=== PATIENT | male | born 1965 | race Caucasian/White ===

== ENCOUNTER 2023-12-23 09:55 | Outpatient (CLI) | payer OTHER, SELFPAY ==
[2023-12-23 10:34] LABS: Basophils Absolute Auto 0.05 K/mm3 (0.00-0.10); Basophils Percent Auto 0.6 % (0.0-1.0); Eosinophils Absolute Auto 0.38 K/mm3 (0.02-0.50); Eosinophils Percent Auto 4.8 % (1.0-6.0); Hematocrit 43.5 % (40.0-54.0); Hemoglobin 14.4 g/dL (14.0-18.0); Immature Granulocyte Absolute 0.02 K/mm3 (0.00-0.00); Immature Granulocyte Percent A 0.3 % (0.0-0.0); Lymphocytes Absolute Auto 2.58 K/mm3 (1.10-4.50); Lymphocytes Percent Auto 32.3 % (18.0-42.0); Mean Corpuscular HGB Conc 33.1 g/dL (32-36); Mean Corpuscular Hemoglobin 28.8 pg (27.0-31.0); Monocytes Percent Auto 8.8 % (2.0-11.0); Neutrophils Absolute Auto 4.26 K/mm3 (1.70-7.20); Neutrophils Percent Auto 53.2 % (50.0-70.0); Platelet Count Result 248 K/mm3 (150-420); Red Cell Distribution Width 13.4 % (11.6-14.4)
[2023-12-23 10:54] LABS: Alanine Aminotransferase 44 U/L (16-63); Albumin Level 4.1 g/dL (3.4-5.0); Alkaline Phosphatase 93 U/L (46-116); Anion Gap 9 mmol/L (4-12); Aspartate Amino Transferase 23 U/L (15-37); Bilirubin,Total 0.4 mg/dL (0.00-1.00); Blood Urea Nitrogen 14 mg/dL (7-18); Carbon Dioxide 28 mmol/L (21-32); Chloride 103 mmol/L (98-108); Cholesterol 220 mg/dL (0-200); Estimated Glomerular Filt Rate > 60; Glucose 109 mg/dL (70-99); HDL Direct 49 mg/dL (40-60); LDL Cholesterol Calculated 142 mg/dL (<130); Osmolality Calculated 291 mOsm/kg (285-295); Potassium 4.4 mmol/L (3.5-5.1); Sodium 140 mmol/L (136-145); Total Protein 7.2 g/dL (6.4-8.2); Triglycerides 145 mg/dL (0-150)
[2023-12-23 10:56] LABS: Thyroid Stimulating Hormone Reflex 2.14 u/IU/mL (0.36-3.74)
== END 2023-12-23 09:56 | disposition home or self-care (01) ==
PROVIDERS: PCP Family Medicine; Visit Provider Family Medicine
DX: E03.9 Hypothyroidism, unspecified (principal); I10 Essential (primary) hypertension
CPT/HCPCS: 36415; 80053; 80061; 84443; 85025

== ENCOUNTER 2024-07-16 12:15 | Emergency (ER) | payer OTHER, SELFPAY ==
--- OUTSIDE RECORDS SUMMARY | 2024-07-16 20:59 | XMS_ITS | Continuity of Care Document ---
Author Organization [facility] Address [address] [place] [address] Phone Care Team Providers Care Sandfill Operator Surface Name Role Phone Ninfa Ling DO Unavailable Unavailable Procedures Procedure Date Flu Vaccine, Split, 3+yrs, IM 2 Advance Directives Directive Yes / No Effective Date File Name No Information Encounters Encounter Description Practice Location Reason(s) For Visit Diagnoses Date Provider Providers Copied on Encounter [facility], [address], [id number], tel:[phone] Other No Information Anuradha Ocasio. [address] [facility] [address], [address], [place], [place], [address], [place]. tel:[phone] Family History Family Member Type Diagnosis Age At Onset No Information Payers Payer name Insurance type Covered constitution party ID Authoriza tion(s) [employer] [id number] Social History Type Description Quantity Date Captured Comments Sex Male Smoking Status No Information Chief Complaint And Reason For Visit No Information Reason For Referral Reason For Referral No Information History Of Present Illness Encounter Date Complaint History Of Prese nt Illness No Information Functional Status Date Functional Assessmen t No Information Instructions Date Instruction Additional Infor mation No Information Assessments Type Assessment Date No Information Patient Care Teams Name Effective Dates (start - stop) Status Members No Information
--- OUTSIDE RECORDS SUMMARY | 2024-07-16 20:59 | XMS_ITS | Patient Health Record ---
Author Organization [facility] Address [address] [address] [place] [address] Care Team Providers Care Answering Service Telephone Operator Name Role Phone Josué MARQUEZ, Hung (Maxi) Primary Care Provide r Unavailable Allergies No Known Allergies Reason For Referral No Information Medications Medication SIG (Take, Route, Frequency, Duration) Notes Start Date End Date Status Tamiflu 75 MG 1 capsule Orally Twi ce a day for 5 day(s) 01/27/2022 Active Lisinopril Active Fluticasone Propionate 50 MCG/ACT 2 spray in each nostril Nasally Once a day for 7 days 01/27/2022 Active Social History Tobacco Use: Social History Observation Description Date Details (start date - stop date) Current Smoker NA - NA Tobacco Use/Smoking Question Answer Notes You are a current smoker How often do you smoke cigarettes? every day How many cigarettes a day do you smoke? - Plan Of Treatment No Information Insurance Providers Payer Name Payer Address Payer Phone Subscriber Number Group Number Insured Name Patient Relationship to Insured Coverage Start Date Coverage End Date [facility] [address] [place] [address] [phone] [id number] JEFFY RIZZO Self - patient is the insured Medical (General) History Medical History History ICD Code HTN (hypertension) I10
--- OUTSIDE RECORDS SUMMARY | 2024-07-16 20:59 | XMS_ITS | Continuity of Care Document ---
Author Organization [facility] Address [address] [place] [address] Phone Care Team Providers Care Farm Equipment Service Technician Name Role Phone Thee Pink DO Unavailable Unavailable Advance Directives Directive Yes / No Effective Date File Name No Information Encounters Encounter Description Practice Location Reason(s) For Visit Diagnoses Date Provider Providers Copied on Encounter [facility], [address], [place], [place], [address] , tel: [phone] Pink BENIGN HYPERTENSIONDEPRESSIV E DISORDER NEC 0 6 Apryl Kingston. [address], [place], [place], [address] , [place]. tel: [phone] [employer], [address], [place], [place], [address] , [place] tel:[phone] Pink ANXIETY STATE NOS 0-200 6 Flor Danielson. [address], [facility] [address], [place], [place], [address] . tel: [phone] [employer], [address], [place], [place], [address] , [place] tel: [phone] Pink MIXED HYPERLIPIDEMIA 8200 5 Apryl Kingston. [address] [employer], [facility] [address], [place], [place], [address] , [place]. tel: [employer], [address], [place], [place], [address] , [place] tel: [phone] Pink LONG-TERM USE MEDS NEC 8200 5 Flor Danielson. [address] [facility] , [facility], [place], [place], [address] . tel: [phone] [facility], [address], [place], [place], [address] , [place] tel:[phone] Pink LUMBAR DISC DISPLACEMENT 5200 5 Ray Erum. [address] [facility], [facility], [place], [place], [address] . tel: [employer], [address], [place], [place], [address] , [place] tel:[phone] Pink DISC DIS NEC/NOS-LUMBAR 6200 4 Ray Erum. [address] [facility], [facility], [place], [place], [address] . tel: [employer], [address], [place], [place], [address] , [place] tel: [phone] Pink SPRAIN LUMBAR REGION 4 Apryl Kingston. [address] [facility] [address], [place], [place], [address] , [place]. tel: [employer], [address], [place], [place], [address] , [place] tel:[phone] Pink ABDMNAL PAIN RT UPR QUADMALIGNANT HYPERTENSION 5200 4 Flor Lowedy. [address] [facility] [address], [place], [place], [address] . tel: [employer], [address], [place], [place], [address] , [place] tel: [phone] Pink ALCOHOL ABUSE-UNSPECGENERALIZ ED ANXIETY DIS Sep-2 2-200 3 Ray Erum. [address] [facility] [address] [facility] [address], [place], [place], [address] . tel: [employer], [address], [place], [place], [address] , [place] tel: [phone] Pink ALOPECIA NOS Apr-0 4-200 3 Ray Erum. [address] [facility] [facility] [facility] [address], [place], [place], [address] . tel: [phone] [employer], [address], [place], [place], [address] , [place] tel:[phone] Pink MALAISE AND FATIGUE NEC Apr-0 4-200 3 Apryl Kingston. [address] [employer] [facility], [place], [place], [address] , . tel: [phone] [employer], [address], [place], [place], [address] , tel: [phone] Pink CHEST PAIN NOSHYPERTENSION NOSSTOMACH FUNCTION DIS NECHEARTBURN Dec-0 7-200 1 Apryl Kingston. [facility] [address] [facility], [place], [place], [address] , . tel: [phone] [employer], [address], [place], [place], [address] , tel: [phone] Pink SOMAT DYSFUNC LUMBAR REG Brian-1 4-200 0 Apryl Kingston. [facility] [employer] [facility], [place], [place], [address] , . tel: [phone] [employer], [address], [place], [place], [address] , tel: [phone] Pink SCIATICA Sep-0 3-199 9 Apryl Kingston. [facility], [place], [place], [address] , . tel: [phone] Family History Family Member Type Diagnosis Age At Onset No Information Payers Payer name Insurance type Covered republican ID Authoriza tion(s) No Information Social History Type Description Quantity Date Captured [...]
--- OUTSIDE RECORDS SUMMARY | 2024-07-16 20:59 | XMS_ITS | Clinical Summary ---
Author Organization [facility] Address [address] [place] [address] Phone Care Team Providers Care Engineering Group Leader Name Role Phone Provider, None Primary Care Provider Unavailabl e Allergies No known active allergies Medications lisinopril (PRINIVIL, ZESTRIL) 10 MG Tablet Take 10 mg by mouth daily. Active HYDROcodone-chalino taminophen (NORCO) 5-325 MG TabletIndicatio ns:Abrasion of right cornea, initial encounter Take 1-2 Tablets by mouth every 4 hours as needed for Moderate or more severe pain. 10 Tablet 01/30/2023 Active Social History Tobacco Use Types Packs/Day Years Used Date Smoking Tobacco: Every Day Cigarettes Smokeless Tobacco: Never Sex and Gender Information Value Date Recorded Sex Assigned at Not on file Legal Sex Male 12:39 AM CDT Gender Identity Not on file Sexual Orientation Not on file Last Filed Vital Signs Vital Sign Reading Time Taken Comments Blood Pressure 141/68 01/30/2023 2:30 AM MANAGER GARAGE Pulse 64 01/30/2023 2:42 AM MANAGER GARAGE Temperature 36.4 C (97.5 F) 01/30/2023 1:37 AM MANAGER GARAGE Respiratory Rate 17 01/30/2023 1:37 AM MANAGER GARAGE Oxygen Saturation 97% 01/30/2023 2:42 AM MANAGER GARAGE Inhaled Oxygen Concentration - - Weight 127 kg (280 lb) 01/30/2023 1:37 AM MANAGER GARAGE Height 193 cm (6' 4 ) 01/30/2023 1:37 AM MANAGER GARAGE Body Mass Index 34.08 01/30/2023 1:37 AM MANAGER GARAGE Plan of Treatment Not on file Insurance [facility] Care Teams Engineering Group Leader Relationship Specialty Start Date End Date Provider, None [place] PCP - General 01/30/23
--- OUTSIDE RECORDS SUMMARY | 2024-07-16 20:59 | XMS_ITS | Patient Health Record ---
Author Organization [facility] Address [address] [place] [address] Care Team Providers Care Mill Washer Name Role Phone Hung Moses Primary Care Provider Niaa Jose Oliveira Unavailable [phone] Reason For Referral No Information Medications Medication SIG (Take, Route, Frequency, Duration) Notes Start Date End Date Status Lisinopril 10 MG TK 1 T PO D Oral for 30 Active Venlafaxine HCl ER 75 MG TK 3 CS PO D Or al for 30 Active Diclofenac-miSOPROStol 75-0.2 MG TK 1 T PO BID FOR 14 DAYS Oral for 14 Not-Taking Social History Tobacco Use: Social History Observation Description Date Details (start date - stop date) Current Smoker NA - NA Tobacco Control: Question Answer Notes Are you a current smoker How often do you smoke cigarettes? every day Problems No Known Problems Plan Of Treatment Pending Test Test Name Order Date CT Lumbar Spine Without Contrast 019 MRI LUMBAR SPINE W/O CONTRAST 05/14/2018 XR Hip Complete LT 05/14/2018 Insurance Providers Payer Name Payer Address Payer Phone Subscriber Number Group Number Insured Name Patient Relationship to Insured Coverage Start Date Coverage End Date [facility] [address] [place] [address] [id number] Regis Driscoll Self - patient is the insured Medical (General) History Medical History History ICD Code hyperlipidemia hypertension Surgical History Surgery Date(Month/Year) appendectomy
[2024-07-17 14:18] LABS: EDSTREPNEGPOS1 Negative (Negative)
== END 2024-07-16 12:28 | disposition home or self-care (01) ==
PROVIDERS: Nurse Practitioner
DX: J06.9 Acute upper respiratory infection, unspecified (principal)
CPT/HCPCS: 87081; 87880; 99213; G0463